=== PATIENT | female | born 1955 | race Two or more races ===

== ENCOUNTER 2024-08-18 06:15 | Day surgery (SDC) | payer OTHER ==
[2024-08-16 11:55] VITALS: BP 126/79
[~2024-08-18] VITALS: Ht 152.4 cm; Wt 85.7 kg
[~2024-08-18 06:15] MED LIST: CRESTOR40 MG; NORVASC5 MG; OMEGA-31000 MG; SYNTHROID200 MCG; TOPROL XL25 M1; VITAMINA D; ZESTRIL20 MG; [UNRECOGNIZED DRUG - OTHER]; [UNRECOGNIZED DRUG - REMARK]
[2024-08-18] MEDS ORDERED: CEFAZOLIN SODIUM 1,000 MG VIAL ONE (13:17)
== END 2024-08-18 20:15 | disposition home or self-care (01) ==
LOC: CIR.AMB 06:15
PROVIDERS: ATTEND Surgery
DX: D05.11 Intraductal carcinoma in situ of right breast (principal)